=== PATIENT | female | born 1970 | race Caucasian/White ===

== ENCOUNTER → 2023-10-17 18:57 | Outpatient (REF) | payer OTHER, SELFPAY | LOC: WDC 18:57 | PROVIDERS: ATTENDING PHYSICIAN Physician Assistant | DX: Z12.31 Encounter for screening mammogram for malignant neoplasm of breast (principal); N64.4 Mastodynia | CPT/HCPCS: 77062; 77066 ==

== ENCOUNTER 2024-02-07 11:57 | Emergency (ER) | payer SELFPAY ==
[2024-02-07 12:00] VITALS: BP 164/102
--- NOTE | 2024-02-07 12:26 | ED.GENMED ---
History of Present Illness
General
Chief Complaint: Head Injury
Source: patient
Exam Limitations: none
Time Seen by Provider: 02/07/24 12:06
Nursing documentation reviewed up to this point in time: agreed with
History of Present Illness
History of Present Illness:
53-year-old female presenting to the emergency department for evaluation of head injury and persistent headache. Patient states that yesterday she was out at recess around 12:30 PM when she was struck forcefully in the back of the head with a
basketball. Patient did not lose consciousness or fall over. However�she does endorse an immediate headache for which she went to the school nurse and had received a dose of Motrin. She was able to stay in school for the rest the day. Patient
states this morning when she woke up headache was still persistent and she had some photophobia. Patient describes a throbbing headache throughout her entire head.
Patient denies any associated visual changes, blurry vision, nausea/vomiting, dizziness, lightheadedness, ataxia. Patient denies any associated neck pain. Patient denies any numbness/tingling in lower extremities.
Patient states that she did go back to school today although given that she still had a severe headache the school sent her to the emergency department for further evaluation
Past History
Past History
ED Past Medical History: Asthma and Other (depression); Negative HTN, Hypercholesterolemia or NIDDM
ED Past Surgical History: None
Social History
Tobacco: Non-smoker
Alcohol: None
Drug: None
Personal:
Living: with family
Employment: Not employed
Review of Systems
Review of Systems
Allergies reviewed?: Yes
All Other Systems: ROS reviewed and negative except as documented in HPI and ROS
Phy Exam
Physical Exam
Physical Exam:
Vitals: Hypertensive, otherwise vital signs stable. Afebrile
General: Patient is well appearing, no acute distress
Skin: Warm and dry, no rashes or lesions
Head: Normocephalic, atraumatic. No notable contusion, hematoma, or step-off in posterior scalp.
Eyes: Sclera nonicteric. EOMs intact. Pupils equal round reactive to light bilaterally. No nystagmus.
Throat: Protecting airway
Neck: Normal ROM, no cervical spine tenderness, no meningismus
Cardiac: Regular rate and rhythm, no murmurs.
Pulm: Normal respiratory effort, no wheezes, rales, rhonchi heard on exam.
Abdomen: No abdominal tenderness.
Extremities: Bilateral nonpitting edema of lower extremities (chronic for patient)
Neuro: AAOx3. CN II-XII intact. No focal neurologic deficits. Fluid speech. Steady gait. Normal finger-nose. Strength 5 out of 5 in upper and lower extremities. Sensation fully intact.
Psychiatric: Normal affect.
Course
Orders/Labs/Results
Orders:
Orders
02/07/24 12:27
CT Head W/o Iv Contrast Urgent
Comment:
Reason For Exam: mior head trauma yesterday; headache, photophobia
Acetaminophen [Tylenol] 650 mg PO NOW STA
02/07/24 12:47
Acetaminophen [Tylenol] 650 mg .ROUTE .STK-MED ONE
Vital Signs
Initial and Last Documented VS:
Initial Vital Signs
Temp Pulse Resp BP Pulse Ox
98.4 F 103 18 164/102 100
02/07/24 12:00 02/07/24 12:00 02/07/24 12:00 02/07/24 12:00 02/07/24 12:00
Last Documented Vital Signs
Temp Pulse Resp BP Pulse Ox
98.4 F 84 16 139/90 100
02/07/24 12:00 02/07/24 14:44 02/07/24 14:44 02/07/24 14:44 02/07/24 14:44
MDM/Problems Addressed
Differential Diagnosis Includes:
Not limited to: Contusion, concussion, doubt skull fracture intracerebral hemorrhage
MDM/Problems Addressed:
53-year-old female presenting for evaluation of persistent headache following minor head injury yesterday. Sent by school as this injury did occur at work. No other associated neurological symptoms. No visual changes. No nausea/vomiting. No
blood thinners. Patient initially hypertensive with a resolved prior to discharge. Otherwise vital signs are stable. Physical exam as above. Patient has no signs of obvious trauma to head or neck. Patient without any focal neurologic findings.
Patient has steady gait and fluid speech. No other signs of trauma. Suspect likely headache secondary to concussion. Although will check head CT given persistence/severity of headache and known head trauma. Will give Tylenol. Will closely
monitor and reassess.
Chronic conditions affecting care:
N/A
Acute Exacerbation and/or Progression of Chronic Illness:
N/A
*Radiology
Radiology exam reviewed: preliminary read by ED provider (No acute abnormalities) and radiology read reviewed
*Pulse Oximetry
Patient hypoxic: no
*EKG
Interpreted by ED Provider?: NA
*Audio Experience Expert Interpretation
Rate: Audio Experience Expert- N/A
*Critical Care Note
Total Time (30-74mins, 75-104mins- exclusive of procedures): Not Applicable
Update Note
Update Note:
Update 1:30 PM: Into reassess patient at bedside. She does report some improvement in headache following Tylenol. Head CT pending.
Update: Head CT without any acute abnormalities. Patient remains with improvement in headache. She is remained stable with no additional neurologic findings. Suspect likely mild concussion. Patient stable for discharge with close return
precautions. Blood pressure has decreased, although still mildly hypertensive�patient aware. Recommend rest, hydration, NSAIDs/Tylenol as needed. Patient will follow-up with Workmen's Comp[employer] doctor and primary care. Case discussed with attending
physician.
ED Attending Note
-
Portions of this chart may have been created with voice recognition software.� Occasional wrong word or��sound alike� substitutions may have occurred due to the inherent limitations of voice recognition software.
Discharge Plan
Departure
Patient Disposition: Home (Routine Discharge)
Date of Disposition: 02/07/24
Time of Disposition: 14:34
Patient with high blood pressure during this ER visit?: Yes
Discharge Problem:
Concussion
Instructions: Concussion, Adult (DC), Head Injury in Adults (DC), BLOOD PRESSURE
Prescriptions:
No Action
naproxen sodium [Aleve] 220 MG tablet
220 mg PO Q6HPRN PRN (Reason: pain)
Atenolol
1 tab PO DAILY
bupropion HCl 150 MG tablet extended release 24 hr
150 mg PO DAILY
diazepam 2 MG tablet
2 mg PO BID PRN (Reason: dizziness) Qty: 14 0RF
ondansetron 4 MG tablet,disintegrating
4 mg PO TIDPRN PRN (Reason: nausea/vomiting) Qty: 14 0RF
cyclobenzaprine 10 mg tablet
10 mg PO TID PRN (Reason: rib pain) Qty: 15 0RF
Referrals:
Monserrat Arora MD [Family Provider] - Follow up in 2-3 days
Stand Alone Forms: Return to Work
Activity Restrictions/Additional Instructions:
RETURN TO THE EMERGENCY DEPARTMENT WITH ANY SEVERE HEADACHE/NECK PAIN, INTRACTABLE NAUSEA/VOMITING, VISUAL CHANGES, PERSISTENT DIZZINESS, CONFUSION, WORSENING IN CURRENT SYMPTOMS, OR ANY OTHER CONCERNS
-As discussed that she may have a mild concussion. You should get plenty of rest. Try and limit your screen time. You can take Motrin and/or Tylenol as needed for any headache.
-Follow-up with Workmen's Comp[employer] physician for further evaluation
-As discussed�you should also follow-up with your primary care doctor in few days to ensure that symptoms are improving
Monitor your symptoms closely return to the emergency department any acute worsening/new symptoms
Interventions
Interventions:
*Risk Screen - Suicide Last Done: 02/07/24 12:00
*General Assessment Last Done: 02/07/24 12:00
*Neglect/Abuse Screening Last Done: 02/07/24 12:00
ED- Fall Risk Assessment Last Done: 02/07/24 14:45
*ED COVID-19 Vaccine History Last Done: 02/07/24 12:03
*Nursing Disposition Last Done: 02/07/24 14:45
ED- Neurological Assessment Last Done: 02/07/24 12:51
ED-Skin Assessment Last Done: 02/07/24 12:51
Discharge Date and Time
Discharge Date/Time: 02/07/24 14:45
Print Language: HUNGARIAN
[2024-02-07] MEDS: TYLENOL 650 MG PO (12:50)
[2024-02-07 14:44] VITALS: BP 139/90
== END 2024-02-07 14:45 | disposition home or self-care (01) ==
LOC: EMR 11:57
PROVIDERS: EMERGENCY PHYSICIAN Student in an Organized Health Care Education/Training Program; FAMILY PHYSICIAN Family Medicine
DX: S06.0X0A Concussion without loss of consciousness, initial encounter (principal); R51.9 Headache, unspecified; W21.05XA Struck by basketball, initial encounter; Y93.89 Activity, other specified; Y92.219 Unspecified school as the place of occurrence of the external cause; Y99.0 Civilian activity done for income or pay; R03.0 Elevated blood-pressure reading, without diagnosis of hypertension; J45.909 Unspecified asthma, uncomplicated; F32.A Depression, unspecified; R60.0 Localized edema; M06.9 Rheumatoid arthritis, unspecified; Z88.8 Allergy status to other drugs, medicaments and biological substances
CPT/HCPCS: 99284; 70450